=== PATIENT | female | born 1955 | race African-American/Black ===

== ENCOUNTER 2021-06-10 09:13 | Emergency (ER) | payer OTHER, MEDICARE, MEDICAID, SELFPAY ==
--- NOTE | ~2021-06-10 | CT_ITS ---
EXAMINATION: CT BRAIN AND CT CERVICAL SPINE WITHOUT CONTRAST. CLINICAL INFORMATION: Altered mental status. Status post fall. COMPARISON: None. TECHNIQUE: 5 mm thin axial and reformatted 2 mm thin sagittal and coronal images of brain were obtained without contrast. . Axial 3 mm thin and reformatted 2 mm thin sagittal and coronal images of cervical spine were obtained. DLP 952. FINDINGS: Brain: There is no acute intra-axial, extra-axial bleed, masses, collection or midline shift. There is no acute infarction evolution. There is no edema. The lion to white matter difference is maintained normal. The lateral ventricles are symmetrical in size and configuration without enlargement. Bone windows reveal no calvarial abnormality. There is no scalp soft tissue abnormality. Bilateral paranasal sinuses and mastoid air cells are well-aerated. Cervical spine: There is mild straightening of cervical lordosis. Loss of C5-C6 disc height with mild ventral and posterior spondylosis noted. Rest the disc heights are normal. The craniovertebral junction and the C1-C2 alignment is normal. There is small defect along the left posterior C1 lamina with sharp edges suspicious for a acute fracture or congenital defect. It is best visualized on axial image 22/5. Visualized C2-C7 vertebra appear unremarkable. The facet joints are well aligned. There is mild ventral and posterior spondylosis at C5-C6 and C6-C7 disc levels. In addition at C5-C6 disc level there is disc herniation/osteophyte complex without spinal canal stenosis.. Rest of the disc levels are unremarkable. There is no lung apices are clear. Bilateral parotid, submandibular and thyroid lobes are symmetrical and normal. Central tracheal airway is widely patent. No abnormal size neck mass or lymph node seen. No lytic or sclerotic process seen. The prevertebral and paravertebral soft tissues are normal. CT/CT cervical spine wo con IMPRESSION: No acute intracranial process seen. Widening of left C1 lamina. Question fracture versus congenital defect. There is no edema or mass effect in this region. Recommend correlation with old CT cervical spine
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
[2021-06-10 09:38] VITALS: BP 120/82; PULSE 97; O2SAT 98; BMI 18.3
[2021-06-10 09:53] VITALS: BP 118/60; PULSE 87; RESP 16; TEMP 36.8; O2SAT 100
[2021-06-10 11:49] LABS: Appearance Urine CLEAR; Color Urine H; Glucose Urine UA NEG (NEG); Leukocyte Esterase Urine 1+ (NEG); Nitrite Urine NEG (NEG); Specific Gravity - Urine 1.015 (1.005-1.025); UACC Culture Trigger YES; Urine Blood NEG (NEG); Urine Ketones NEG (NEG); Urine Protein NEG (NEG-TRACE)
[2021-06-10 11:55] LABS: Bacteria Urine TRACE /LPF; Mucus Urine 1+ /LPF; Renal Epithelial Cells Urine 1+ /LPF; Squamous Epithelial Cell Urine 1+ /LPF
[2021-06-10 12:00] LABS: Amphetamine Screen Urine Not Detected (Not Detect); Barbiturates, Urine Not Detected (Not Detect); Benzodiazepines Screen Urine Not Detected (Not Detect); Cannabinoid Screen Urine Not Detected (Not Detect); Cocaine Screen Urine Not Detected (Not Detect); Fentanyl, urine Not Detected (Not Detect); Opiate Screen Urine Not Detected (Not Detect); Phencyclidine Screen Urine Not Detected (Not Detect)
--- NOTE | 2021-06-10 12:10 | PC.NURSE ---
The pt has been resting in hallway stretcher. She was able to get OOB into wheelchair and ambulate from wheelchair to toilet and back without incident, per teach at bedside with patient. The pt denies pain. She states she has a bad right leg and that may be why she fell earlier today. She is calm,flat affect, makes no eye contact with RN. Urine obtained and spec sent to lab. Will continue to monitor.
== END 2021-06-10 14:29 ==
PROVIDERS: Physician Assistant; Emergency Provider Emergency Medicine; PCP Nurse Practitioner Adult Health
DX: R40.1 Stupor (principal); F43.10 Post-traumatic stress disorder, unspecified; F41.1 Generalized anxiety disorder; F32.9 Major depressive disorder, single episode, unspecified
CPT/HCPCS: 70450; 72125; 80307; 81001; 87086; 99285

== ENCOUNTER 2021-06-15 16:29 | Emergency (ER) | payer OTHER, MEDICARE, MEDICAID, SELFPAY ==
--- NOTE | ~2021-06-15 | XR_ITS ---
EXAMINATION: BILATERAL HANDS AND WRISTS CLINICAL INFORMATION: Wrist fracture status post reduction COMPARISON: Multiple prior studies from earlier today TECHNIQUE: 2 views right hand and wrist with single lateral view of left wrist. FINDINGS: Right: Again seen is the distal right radial metaphyseal fracture. Alignment is better with only a tiny amount of dorsal angulation, improved when compared to the study earlier today. Left: There still remains dorsal angulation of the distal radial fracture slightly improved when compared to the prior study. XR/XR hand wrist RT IMPRESSION: Improved angulation of the distal left radial fractures as described above
--- NOTE | ~2021-06-15 | XR_ITS ---
EXAMINATION: LEFT HAND CLINICAL INFORMATION: Status post reduction COMPARISON: Left hand and wrist radiographs same day, 5:00 PM TECHNIQUE: 3 views left hand and wrist FINDINGS: Again seen is a impacted distal left radial metaphyseal fracture with marked significant dorsal angulation. Since the prior study, the dorsal angulation is improved only a minimal amount remaining. The impaction is also slightly improved. The minimally displaced ulnar styloid fracture appears without change but is less well visualized because of the overlying cast. XR/XR hand wrist LT IMPRESSION: Improvement in impaction and angulation of distal left radial fracture.
--- NOTE | ~2021-06-15 | XR_ITS ---
EXAMINATION: BILATERAL HANDS AND WRISTS CLINICAL INFORMATION: Wrist fracture status post reduction COMPARISON: Multiple prior studies from earlier today TECHNIQUE: 2 views right hand and wrist with single lateral view of left wrist. FINDINGS: Right: Again seen is the distal right radial metaphyseal fracture. Alignment is better with only a tiny amount of dorsal angulation, improved when compared to the study earlier today. Left: There still remains dorsal angulation of the distal radial fracture slightly improved when compared to the prior study. XR/XR hand wrist LT IMPRESSION: Improved angulation of the distal left radial fractures as described above
--- NOTE | ~2021-06-15 | XR_ITS ---
EXAMINATION: XR hand wrist RT XR hand wrist LT CLINICAL INFORMATION: Reason for Exam s/p fall COMPARISON: None. TECHNIQUE: 4 views of each wrist XR/XR hand wrist LT FINDINGS/IMPRESSION: Right wrist: There is a distal radial metaphyseal fracture with mild dorsal angulation and comminution of the dorsal cortical surface. Minimally displaced ulnar styloid avulsion fracture. Left wrist: There is a distal radial metaphyseal fracture with significant dorsal angulation and dorsal impaction, with one half shaft width dorsal displacement. Minimally displaced ulnar styloid avulsion fracture.
--- NOTE | ~2021-06-15 | XR_ITS ---
EXAMINATION: XR hand wrist RT XR hand wrist LT CLINICAL INFORMATION: Reason for Exam s/p fall COMPARISON: None. TECHNIQUE: 4 views of each wrist XR/XR hand wrist RT FINDINGS/IMPRESSION: Right wrist: There is a distal radial metaphyseal fracture with mild dorsal angulation and comminution of the dorsal cortical surface. Minimally displaced ulnar styloid avulsion fracture. Left wrist: There is a distal radial metaphyseal fracture with significant dorsal angulation and dorsal impaction, with one half shaft width dorsal displacement. Minimally displaced ulnar styloid avulsion fracture.
[2021-06-15 16:41] VITALS: BP 115/70; BP 120/76; PULSE 106; RESP 98; TEMP 36.7; O2SAT 94; O2SAT 98; BMI 21.6
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
[2021-06-15] MEDS: Morphine Sulfate 10 MG/ML CARTRIDGE IM (18:29)
[2021-06-15] MEDS: Lidocaine HCl 2 % MPF 5 ML VIAL 10 ML INFILTRATI (18:29)
--- NOTE | 2021-06-15 18:30 | PC.NURSE ---
patient has had a 1:1 sitter since arrival, provider at bedside to splint patients bilateral arms
[2021-06-15 18:33] VITALS: BP 118/82; PULSE 106; O2SAT 95
--- NOTE | 2021-06-15 18:37 | PC.NURSE ---
patient medicated with IM morphine for 10/10 pain
--- NOTE | 2021-06-15 20:15 | PC.NURSE ---
[facility] was called [phone] to ensure they would be taking the patient back, message was left, awaiting a call back from the facility
[2021-06-15 20:33] VITALS: BP 106/70; PULSE 92; RESP 22; TEMP 36.6; O2SAT 97
[2021-06-15] MEDS: Ondansetron ODT 4 MG TAB.RAPDIS TRANSLINGU (21:01)
--- NOTE | 2021-06-15 21:01 | PC.NURSE ---
pt medicated for nausea with sl zofran, bilateral slings applied by tech, pt states her pain is 5/10 which has decreased from 10/10, vss, will continue to monitor
--- NOTE | 2021-06-15 21:33 | PC.NURSE ---
patient stood/ambulated in room, then ambulated to ems stretcher, pt denied nausea/dizziness while ambulating.
== END 2021-06-15 21:34 ==
PROVIDERS: Emergency Provider Internal Medicine
DX: S62.101A Fracture of unspecified carpal bone, right wrist, initial encounter for closed fracture (principal); S62.102A Fracture of unspecified carpal bone, left wrist, initial encounter for closed fracture; M25.532 Pain in left wrist; M25.531 Pain in right wrist; F33.1 Major depressive disorder, recurrent, moderate; W01.0XXA Fall on same level from slipping, tripping and stumbling without subsequent striking against object, initial encounter; Y93.9 Activity, unspecified; Y92.129 Unspecified place in nursing home as the place of occurrence of the external cause; Y99.9 Unspecified external cause status; Z91.51 Personal history of suicidal behavior; Z79.899 Other long term (current) drug therapy
CPT/HCPCS: 25605; 29105; 73110; 73130; 96372; 99284; 99285; J2270

== ENCOUNTER 2021-06-25 11:54 | Outpatient (REF) | payer OTHER, MEDICARE, MEDICAID, SELFPAY ==
--- NOTE | ~2021-06-25 | XR_ITS ---
EXAMINATION: XR FOOT, LEFT CLINICAL INFORMATION: Pain COMPARISON: None TECHNIQUE: AP, lateral, and oblique views of the left foot. FINDINGS: Bone alignment is normal. No acute fracture or dislocation is seen. There is a well-corticated ossification adjacent to the anterior talus seen on the lateral view, question related to old trauma. Joint spaces are normal. There are small calcaneal spurs. Soft tissues are otherwise normal. XR/XR foot LT min 3V IMPRESSION: Question evidence of old trauma to the anterior talus. Small calcaneal spurs.
== END 2021-06-25 11:55 | disposition home or self-care (01) ==
LOC: HO.HOSX 11:54
PROVIDERS: Visit Provider Orthopaedic Surgery
DX: S52.501A Unspecified fracture of the lower end of right radius, initial encounter for closed fracture (principal); S52.502A Unspecified fracture of the lower end of left radius, initial encounter for closed fracture
CPT/HCPCS: 73630; 99202

== ENCOUNTER 2021-06-26 07:20 | Day surgery (SDC) | payer MEDICARE, MEDICAID, SELFPAY ==
--- NOTE | 2021-06-25 10:17 | P.CONAN_ITS ---
Documented by User: Becca Buchanan NP 06/25/21 10:29 HPI - Anesthesia Eval Consult details Narrative: 65yo F for Bilateral Radius Distal Fracture ORIF h/o seizures - no anti-epileptic drugs d/t noncompliance per ER notes. T/C with social worker delinquency prevention Ana at [facility] (inpatient psych), pt has had long admission with no seizure activity, thought to be an old diagnosis PMFSH Active Problems Active Problems: All Active Problems (Updated 06/16/21 @ 00:01 by Radha Garrett) Seizures (Acute) Depression (Acute) PTSD (post-traumatic stress disorder) (Acute) Catatonia (Acute) Past Medical History Medical History Catatonia Depression PTSD (post-traumatic stress disorder) Seizures Surgical History Surgical History (Updated 06/26/21 @ 06:17 by Radhika Lujan RN) History of breast surgery History of hernia surgery History of knee surgery History of mandibular surgery Hx of hysterectomy Hx of total knee replacement Social History Social History (Updated 06/25/21 @ 12:06 by Adina Mcgee) Alcohol intake: unknown Patient Tobacco Use Status: Never used Tobacco Use of substances other than those prescribed or required for medical reasons: No Are you DNR?: No Advance Directives: No Advance Directives Information Provided: No Current occupational status: disabled 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 Meds Allergies Allergy/AdvReac Type Severity Reaction Status Date / Time aspirin [ASA] Allergy Mild VOMITTING Verified 06/25/21 12:05 diphenhydramine Allergy Mild DROPS BP Verified 06/25/21 12:05 [From BENADRYL] Penicillins [PCN] Allergy Mild VOMITTING Verified 06/25/21 12:05 prochlorperazine Allergy Mild MUSCLE Verified 06/25/21 12:05 [From COMPAZINE] STIFFNESS haloperidol [From Haldol] Allergy Anaphylaxis Verified 06/26/21 06:19 ibuprofen AdvReac Nausea Verified 06/26/21 06:19 oxycodone AdvReac Stomach Verified 06/26/21 06:19 Upset Home Medications Medication Instructions Recorded Confirmed Last Taken Type acetaminophen 500 mg tablet 1,000 mg PO TID 06/26/21 06/26/21 Unknown History aripiprazole 5 mg tablet (Abilify) 5 mg PO BEDTIME 06/26/21 06/26/21 Unknown His tory duloxetine 60 mg capsule,delayed 60 mg PO DAILY 06/26/21 06/26/21 Unknown History release (Cymbalta) gabapentin 100 mg tablet 200 mg PO TID 06/26/21 06/26/21 Unknown History quetiapine 100 mg tablet (Seroquel) 100 mg PO BEDTIME 06/26/21 06/26/21 Unknown History Exam Exam Date and Time: June 25, 2021 1017 Assessment and Plan Assessment Anesthesia Assessment: Chart Reviewed Documented by User: Ranjit Herron MD 06/26/21 10:11 PMFSH Past Medical History Medical History Catatonia Depression PTSD (post-traumatic stress disorder) Seizures Family History Family history of problems with anesthesia: No Surgical History Surgical History (Updated 06/26/21 @ 06:17 by Radhika Lujan RN) History of breast surgery History of hernia surgery History of knee surgery History of mandibular surgery Hx of hysterectomy Hx of total knee replacement History of Problems with Anesthesia: Yes (PONV) Social History Social History (Updated 06/25/21 @ 12:06 by Adina Mcgee) Alcohol intake: unknown Patient Tobacco Use Status: Never used Tobacco Use of substances other than those prescribed or required for medical reasons: No Are you DNR?: No Advance Directives: No Advance Directives Information Provided: No Current occupational status: disabled 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 Meds Allergies Allergy/AdvReac Type Severity Reaction Status Date / Time aspirin [ASA] Allergy Mild VOMITTING Verified 06/25/21 12:05 diphenhydramine Allergy Mild DROPS BP Verified 06/25/21 12:05 [From BENADRYL] Penicillins [PCN] Allergy Mild VOMITTING Verified 06/25/21 12:05 prochlorperazine Allergy Mild MUSCLE Verified 06/25/21 12:05 [From COMPAZINE] STIFFNESS haloperidol [From Haldol] Allergy Anaphylaxis Verified 06/26/21 06:19 ibuprofen AdvReac Nausea Verified 06/26/21 06:19 oxycodone AdvReac Stomach Verified 06/26/21 06:19 Upset Home Medications Medication Instructions Recorded Confirmed Last Taken Type acetaminophen 500 mg tablet 1,000 mg PO TID 06/26/21 06/26/21 Unknown History aripiprazole 5 mg tablet (Abilify) 5 mg PO BEDTIME 06/26/21 06/26/21 Unknown History duloxetine 60 mg capsule,delayed 60 mg PO DAILY 06/26/21 06/26/21 Unknown History release (Cymbalta) gabapentin 100 mg tablet 200 mg PO TID 06/26/21 06/26/21 Unknown History quetiapine 100 mg tablet (Seroquel) 100 mg PO BEDTIME 06/26/21 06/26/21 Unknown History Exam Airway Mallampati Class: II TM Dist: >3cm Neck ROM: Full Loose/Missing/Broken Teeth: No Assessment and Plan Assessment Anesthesia Assessment: Anesthesia Plan Discussed Final Anesthetic Review Family History of Problems with Anesthesia: No History of Problems with Anesthesia: Yes (PONV) NPO: Yes ASA Class: II Final Preanesthetic Review: No Changes in Pt Med Stat, Meds/Allgs Chart Reviewed, Consent Obtained/Reviewed and Anes Risks/Benef Reviewed Patient Risk: Intermediate Procedure Risk: Low Anesthetic Plan Anesthetic Plan: GA and Regional Block Disposition: Standard PACU
[2021-06-26] VITALS (19 sets, daily range): BP systolic 122–155; BP diastolic 60–81; PULSE 87–112; RESP 14–18; TEMP 36.1–37.1; O2SAT 93–100; BMI 21.2
--- NOTE | ~2021-06-26 | FL_ITS ---
EXAMINATION: XR FLUOROSCOPY WITH IMAGES CLINICAL INFORMATION: Distal radius fracture with ORIF, left COMPARISON: None. TECHNIQUE: Fluoroscopy performed by Dr. Hunter. Fluoroscopy time: 50.2 seconds DAP: 56762.1 Gycm2 Images: 3 FINDINGS: Distal radial fracture noted. There is plate and screw fixation hardware of the distal radius chest fixing the fracture with near-anatomic alignment. FL/FL guidance in OR IMPRESSION: Internal fixation of the distal radial fracture. Please refer to procedural report for further information.
--- NOTE | ~2021-06-26 | FL_ITS ---
EXAMINATION: XR FLUOROSCOPY WITH IMAGES CLINICAL INFORMATION: Distal radius fracture ORIF, right COMPARISON: None. TECHNIQUE: Fluoroscopy performed by Dr. Hunter. Fluoroscopy time: 31.3 seconds DAP: 63303.3 Gycm2 Images: 2 FINDINGS: There is plate and screw fixation hardware transfixing the distal radius with near-anatomic alignment. FL/FL guidance in OR IMPRESSION: Fluoroscopic guidance for internal fixation of the distal radius. Please refer to operative report for further information.
[2021-06-26 06:46] LABS: IDNOW Serial# 9DD0AD1C
[2021-06-26 06:47] LABS: COVID-19 Test Negative (Negative)
--- NOTE | 2021-06-26 07:46 | MHC.SHP ---
Pre-Procedural Eval Section A Date of Service: 06/26/21 The patient is an INPATIENT: No Changes since office visit: No Cold of Flu in the past 2 weeks, No New Medical Problems, No Changes in Medication and No Patient answered all questions The History & Physical has been completed within 30 days and I have reviewed it.: Yes Section B Chief Complaint: right and left wrist fx Allergies: Allergies Allergy/AdvReac Type Severity Reaction Status Date / Time aspirin [ASA] Allergy Mild VOMITTING Verified 06/25/21 12:05 diphenhydramine Allergy Mild DROPS BP Verified 06/25/21 12:05 [From BENADRYL] Penicillins [PCN] Allergy Mild VOMITTING Verified 06/25/21 12:05 prochlorperazine Allergy Mild MUSCLE Verified 06/25/21 12:05 [From COMPAZINE] STIFFNESS haloperidol [From Haldol] Allergy Anaphylaxis Verified 06/26/21 06:19 ibuprofen AdvReac Nausea Verified 06/26/21 06:19 oxycodone AdvReac Stomach Verified 06/26/21 06:19 Upset Plan I have reviewed the history and physical and performed a pertinent physical examination on my patient. No changes have occurred unless specified.
--- NOTE | 2021-06-26 07:47 | P.OP_ITS ---
Operative Note Operative Note Date of Service: 06/26/21 Narrative: Operative Note Narrative: Preop diagnosis: 1. Left Distal radius fracture 2. Right distal radius fracture Postop diagnosis: Same Procedure: 1. Left Distal radius fracture open reduction internal fixation, 2 part intra- articular 2. Right distal radius fracture open reduction internal fixation, extra- articular Surgeon: Mitra Hunter MD Anesthesia: General plus regional block x2 Findings: Distal radius fractures x2 Implants: Left side: A 3 hole standard Accu Med volar locking plate, with 4x 2.3 mm locking pegs/screws, and 3 3.5 mm cortical screws Right side: A 3 hole standard Accu Med volar locking plate, with 4x 2.3 mm locking pegs/screws, and 3? 3.5 mm cortical screws Tourniquet time: Left side: 44 minutes Right side: 35 Minutes EBL: 10.0 ml Specimen: None Drains: None Complications: None Disposition: Brought to the recovery room in stable condition Plan: The patient will be admitted to the hospital today. Anticipate discharge to family/friend tomorrow with home health care as arranged by social work and nursing Follow-up in 10-14 days for wound check, suture removal and postop radiographs The patient will likely be placed in bilateral Velcro wrist splints. Encouraged no lifting of anything heavier than a cell phone. Please encourage active and passive range of motion of the digits. Follow-up at 4-5 weeks postop for repeat radiographs. Indications: The patient is a 65 year old woman with displaced bilateral distal radius fractures . The risks and benefits of operative treatment, including but not limited to risk of damage to blood vessels, nerves, tendons, infection, recurrence, persistent pain or numbness, incomplete resolution of preoperative symptoms, or need for further surgery were discussed with the patient and they wished to proceed with surgery. Procedure left upper extremity: Once consent was obtained patient was brought back to the operating suite and placed in the operating table in a supine posi tion. A regional block was performed by the anesthesia team. Perioperative antibiotics and anesthesia was administered by the anesthesia team. A tourniquet was applied to the proximal aspect of the left upper extremity and the limb was prepped and draped in a standard surgical fashion. The limb was elevated exsanguinated with Esmarch bandage and the tourniquet inflated to 250 mm of mercury for a total tourniquet time of 44 minutes. The FluoroScan was used throughout the case to assess our reduction, and facilitate implant placement. A gentle closed reduction was 1st performed on the patient's left distal radius fracture. Was assessed radiographically before proceeding with the reduction internal fixation. I then made an 8 cm longitudinal incision over the distal aspect of the flexor carpi radialis tendon. The incision was made through the skin to the subcutaneous tissue using a 15. Blade. Then carefully dissected down to flexor carpi radialis tendon she tenotomy scissors. The FCR tendon sheath was then incised longitudinally using tenotomy scissors under direct visualization. The FCR tendon was then retracted ulnarly. I then made a longitudinal incision in the volar forearm fascia through the floor of FCR tendon sheath using tenotomy scissors under direct visualization. I identified the interval between the radial artery and the flexor tendons. This interval was developed further with my index finger, releasing some of the muscular fibers of the flexor pollicis longus. A dull weatlander retractor was then placed. I then created an ulnarly based flap of the pronator quadratus by releasing the radial and distal edges using a 15. Blade. A Gloria elevator was used to elevate the pronator quadratus from the volar surface of the distal radius. This then revealed to us our distal radius fracture. An open reduction was then performed on our distal radius fracture. Some of the pronator quadratus musculature was caught in the fracture site and this was rem chai with a small rongeur and a [place] elevator. I also performed a tenotomy of the brachioradialis tendon at its insertion in the radial styloid to facilitate our reduction. Once satisfied with our open reduction I then placed a short standard 3 hole Accu Med volar locking plate on the volar surface of the distal radius. I placed a single K-wire through the distal aspect of the plate and into the distal radius. This was assessed using fluoroscopic images. I was satisfied with the placement of our plate. I then placed 4x 2.3 mm locking screws/pegs in the distal aspect of the plate and distal radius by 1st drilling bicortically with a 1.8 mm drill bit, measuring with a depth gauge, and placing the appropriate length locking screws/pegs. The placement of our plate and screws was then assessed again using fluoroscopic images. The once satisfied with the placement of the volar locking plate and screws on the distal aspect of the distal radius, the plate was then reduced to the shaft of the radius. I then placed 3 3.5 mm cortical screws to the proximal aspect of the plate and into the shaft of the radius. This was done by 1st drilling bicortically with a 2.8 mm drill bit, measuring with a depth gauge, and placing the appropriate length screw. Final radiographs were then obtained. The DRUJ was assessed and found to be stable on exam. I was satisfied with our reduction and placement of all implants. At this point the wound was irrigated with normal saline. The pronator quadratus was reduced back over the volar locking plate using some 3-0 Vicryl suture material. The tourniquet was then deflated and hemostasis was obtained with a brief period of local pressure and bipolar monopolar electrocautery. The subcutaneous layer was then reapproximated using some 4-0 Vicryl suture, and the skin edges were reapproximated using some 5 0 Prolene suture. The wound was then infiltrated with some 0.25% plain Marcaine for postop pain control. A sterile dressing and a short dorsal splint allowing for active flexion and extension of the digits was applied. The patient appears to have tolerated the procedure well and with no complications. All digits were well vascularized conclusion of the case. Procedure right upper extremity: Once consent was obtained patient was brought back to the operating suite and placed in the operating table in a supine position.? A regional block was performed by the anesthesia team.? Perioperative antibiotics and anesthesia was administered by the anesthesia team.? A tourniquet was applied to the proximal aspect of the right upper extremity and the limb was prepped and draped in a standard surgical fashion.? The limb was elevated exsanguinated with Esmarch bandage and the tourniquet inflated to 250 mm of mercury for a total tourniquet time of 35 minutes.?? The FluoroScan was used throughout the case to assess our reduction, and facilitate implant placement.? A gentle closed reduction was 1st performed on the patient's right distal radius fracture.? Was assessed radiographically before proceeding with the reduction internal fixation.? I then made an 8 cm longitudinal incision over the distal aspect of the flexor carpi radialis tendon.? The incision was made through the skin to the subcutaneous tissue using a 15. Blade.? Then carefully dissected down to flexor carpi radialis tendon she tenotomy scissors.? The FCR tendon sheath was then incised longitudinally using tenotomy scissors under direct visualization.? The FCR tendon was then retracted ulnarly.? I then made a longitudinal incision in the volar forearm fascia through the floor of FCR tendon sheath using tenotomy scissors under direct visualization.? I identified the interval between the radial artery and the flexor tendons.? This interval was developed further with my index finger, releasing some of the muscular fibers of the flexor pollicis longus.? A dull weatlander retractor was then placed.? I then created an ulnarly based flap of the pronator quadratus by releasing the radial and distal edges using a 15. Blade.? A Gloria elevator was used to elevate the pronator quadratus from the volar surface of the distal radius.? This then revealed to us our distal radius fracture. An open reduction was then performed on our distal radius fracture.? I then placed a? short standard 3 hole Accu Med volar locking plate on the volar surface of the distal radius.? I placed a single K-wire through the distal aspect of the plate and into the distal radius.? This was assessed using fluoroscopic images.? I was satisfied with the placement of our plate.? I then placed 4x? ?2.3 mm locking screws/pegs in the distal aspect of the plate and distal radius by 1st drilling bicortically with a 1.8 mm drill bit, measuring with a depth gauge, and placing the appropriate length locking screws/pegs.? The placement of our plate and screws was then assessed again using fluoroscopic images.? The once satisfied with the placement of the volar locking plate and screws on the distal aspect of the distal radius, the plate was then reduced to the shaft of the radius.? I then placed 3? ?3.5 mm cortical screws to the proximal aspect of the plate and into the shaft of the radius.? This was done by 1st drilling bicortically with a 2.8 mm drill bit, measuring with a depth gauge, and placing the appropriate length screw.? Final radiographs were then obtained.? The DRUJ was assessed and found to be stable on exam.? I was satisfied with our reduction and placement of all implants. At this point the wound was irrigated with normal saline.? The pronator quadratus was reduced back over the volar locking plate using some 3-0 Vicryl suture material.? The tourniquet was then deflated and hemostasis was obtained with a brief period of local pressure and bipolar monopolar electrocautery.? The subcutaneous layer was then reapproximated using some 4-0 Vicryl suture, and the skin edges were reapproximated using some 5 0 Prolene suture.? The wound was then infiltrated with some 0.25% plain Marcaine for postop pain control. A sterile dressing and a short dorsal splint allowing for active flexion and extension of the digits was applied.? The patient appears to have tolerated the procedure well and with no complications.? All digits were well vascularized conclusion of the case.
[2021-06-26] MEDS: ondansetron HCL 4 MG/2 ML VIAL IVPUSH ×2 (14:44→23:46)
[2021-06-26] MEDS: Acetaminophen 325 MG TABLET 650 MG PO (15:42)
[2021-06-26] MEDS: Ketorolac Tromethamine 15 MG/ML VIAL IVPUSH (16:03)
--- NOTE | 2021-06-26 16:19 | MHC.CARE ---
Pt was recently d/c from inpatient psych ([facility]) due to surgery being conducted today. Plan is when pt is medically cleared consult CARE team at 56 to assess pt's current mental status and determine if pt still requires inpatient psych.
[2021-06-26] MEDS: Lactated Ringers 1,000 ML 100 ML IVCONT (17:39)
[2021-06-26] MEDS: oxyCODONE HCl Immed Release 5 MG TABLET PO (23:46)
[2021-06-27 03:19] VITALS: BP 132/63; PULSE 80; RESP 16; TEMP 36.8; O2SAT 97
[2021-06-27] MEDS: Lactated Ringers 1,000 ML 100 ML IVCONT (05:15)
[2021-06-27] MEDS: HYDROmorphone HCl 0.5 MG/0.5 ML SYRINGE 0.25 MG IVPUSH ×2 (05:54→19:45)
[2021-06-27 07:24] VITALS: BP 138/68; PULSE 82; RESP 18; TEMP 36.8; O2SAT 96
[2021-06-27] MEDS: oxyCODONE HCl Immed Release 5 MG TABLET PO ×3 (07:33→19:40)
[2021-06-27] MEDS: Acetaminophen 325 MG TABLET 650 MG PO ×2 (07:33→13:08)
--- NOTE | 2021-06-27 08:06 | PM.PNORT ---
Subjective Subjective Date of Service: 06/27/21 Interval history: POD1 s/p bilat distal radius ORIF with Dr. Hunter. Pain is well managed. No overnight events. Physical Exam Vital Signs: Vital Signs: Last Vital Signs Temp 98.3 F 06/27/21 07:24 Pulse 82 06/27/21 07:24 Resp 18 06/27/21 07:24 BP 138/68 06/27/21 07:24 Pulse Ox 96 06/27/21 07:24 Body Mass Index 21.2 Const: General: cooperative, healthy appearing and no acute distress Resp: Effort & Inspection: normal respiratory effort and able to speak in complete sentences Cardio: Rate: regular rate Peripheral pulses: Peripheral pulses 2+ throughout GI: Palpation (GI): Soft to palpation Skin: Lesions: no lesions Rashes: no rashes Extrem: Other: Bilateral wrist splints are clean, dry, and intact. Patient is able to move all digits. Procedures Date of Service Date of Service: 06/27/21 Progress Note: A&P Assessment and plan (1) Distal radius fracture, right: Status: Acute Assessment and Plan: Continue pain mgmnt Keep splints clean, dry, and intact Gentle finger ROM to make a closed fist No lifting greater than a cell phone Dispo planning-Pending case management placement at rehab (2) Distal radius fracture, left: Status: Acute Fall Risk Details Current Medications: Current Medications Acetaminophen (Acetaminophen 325 Mg Tablet) 650 mg PO Q6H PRN PRN Reason: Pain, Mild (Pain Scale 1-3) Last Admin: 06/27/21 07:33 Dose: 650 mg Documented by: Al Hydroxide/Mg Hydroxide (Magnesium Hydrox/Alum Hydrox 30 Ml Oral.Susp) 30 ml PO Q4H PRN PRN Reason: Heartburn/Nausea Hydromorphone HCl (Hydromorphone Hcl 0.5 Mg/0.5 Ml Syringe) 0.25 mg IVPUSH Q5M PRN; Protocol PRN Reason: Pain, Severe (Pain Scale 7-10) Last Admin: 06/27/21 05:54 Dose: 0.25 mg Documented by: Lactated Ringer's (Lr) 1,000 mls @ 100 mls/hr IVCONT .Q10H UMANG Last Admin: 06/27/21 05:15 Dose: 100 mls/hr Documented by: Lorazepam (Lorazepam 2 Mg/Ml Vial) 0.5 mg IVPUSH Q2H PRN PRN Reason: Nausea Melatonin (Melatonin 3 Mg Tablet) 3 mg PO BEDTIME PRN PRN Reason: Insomnia Ondansetron HCl (Ondansetron Hcl 4 Mg/2 Ml Vial) 4 mg IVPUSH ONCE PRN PRN Reason: Nausea and Vomiting Last Admin: 06/26/21 14:44 Dose: 4 mg Documented by: Ondansetron HCl (Ondansetron Hcl 4 Mg/2 Ml Vial) 4 mg IVPUSH Q8H PRN PRN Reason: Nausea and Vomiting Last Admin: 06/26/21 23:46 Dose: 4 mg Documented by: Oxycodone HCl (Oxycodone Hcl Immed Release 5 Mg Tablet) 5 mg PO Q4H PRN PRN Reason: Pain, Moderate (Pain Scale 4-6 Last Admin: 06/27/21 07:33 Dose: 5 mg Documented by: Sodium Chloride (0.9 % Sodium Chloride Flush 3 Ml Syringe) 3 ml [facility] Last Admin: 06/27/21 07:28 Dose: Not Given Documented by: Time Spent With Patient Time: Total time spent is greater than 50% in coordination of care (as documented) at patient's floor/unit and/or counseling patient: Time with patient: less than 15 minutes Quality Stroke Does the patient have a stroke diagnosis?: No VTE Prior VTE?: No VTE Risk Level:: Surgical - very high VTE Device Contraindication: N/A - Device Ordered VTE Drug Contraindication: N/A - Med Ordered
--- NOTE | 2021-06-27 08:26 | HO.POSTANES ---
Post Anesthesia Evaluation Post Anesthesia Evaluation Vital Signs: Vital Signs Temp Pulse Resp BP Pulse Ox 06/27/21 07:24 98.3 F 82 18 138/68 96 06/27/21 03:19 98.2 F 80 16 132/63 97 06/26/21 23:49 98.5 F 93 16 127/68 98 Anesthesia: General Mental Status: Awake Pain Control: Satisfactory Nausea/Vomiting: None Hydration: Adequate Anesthesia-Related Issues: No Anes. Related Issues
--- NOTE | 2021-06-27 08:54 | MHC.CM.PN ---
LATE ENTRY FROM 06/26 PHONE CALL Received call from child care director re: pt: Pt admitted E[facility] for bilateral wrist fx repair: original d/c plan was for pt stay with a family in [place] and receive VNA from [facility], however, per orthodontic assistant, pt 'cancelled' this arrangement. Pt had been at [facility] in [place] when she sustained the self inflicted wrist fx by intentionally falling forward onto the floor. Per fax correpsondance from [facility] (see scanned letter), they are unable to take pt back d/t her new medical complexity. child care director would like pt seen by PT and placed for STR. Upon review, it is noted that pt has Medicare without a secondary. Also, there is no HCP per [facility]. Pt will need to be cleared by N d/t the nature of her injuries: child care director states pt is alert and oriented and should be able to complete a HCP. Pt's living situation prior to psych admission is unknown. CM will follow for ? placement.
--- NOTE | 2021-06-27 10:07 | MHC.CARE ---
CARE Team spoke with Enmanuel Perez [phone] who reported Pt has been fully discharged from [facility] and completed her plan of care. Ana emailed Pt discharged summary to t/w which was placed in Pts chart and emailed to CM. CARE Team communicated with CM that Pt does not need further intervention from the CARE Team at this time.
--- NOTE | 2021-06-27 10:09 | MHC.CARE ---
CARE Team met with Pt who denies current SI/HI/VH/AH. Pt is advocating for discharged with support from CM services and to follow up with Pts therapist. Pt does not require further intervention from CARE Team. CARE Team notified CM and attending provider Mitra.
[2021-06-27 11:22] VITALS: BP 138/68; PULSE 82; O2SAT 96
[2021-06-27 12:00] VITALS: BP 153/70; PULSE 93; RESP 18; TEMP 36; O2SAT 97
--- NOTE | 2021-06-27 12:13 | MHC.CM.PN ---
talksed with pt who will be stqaying at the [facility] last name alessandra whelan notified of dc destination and that ot will be needed spoke with alice pt says she has own transport home
[2021-06-27] MEDS: ondansetron HCL 4 MG/2 ML VIAL IVPUSH (13:12)
[2021-06-27 15:49] VITALS: BP 138/85; PULSE 94; RESP 18; TEMP 37.4; O2SAT 97
[2021-06-27] MEDS: 0.9 % Sodium Chloride Flush 3 ML SYRINGE IVFLUSH ×2 (16:03→19:46)
[2021-06-27 19:49] VITALS: BP 167/89; PULSE 92; RESP 20; TEMP 36.9; O2SAT 97
[2021-06-28] VITALS (7 sets, daily range): BP systolic 125–159; BP diastolic 67–85; PULSE 75–108; RESP 14–18; TEMP 36.2–36.8; O2SAT 94–96
[2021-06-28] MEDS: oxyCODONE HCl Immed Release 5 MG TABLET PO ×3 (05:20→21:46)
[2021-06-28] MEDS: 0.9 % Sodium Chloride Flush 3 ML SYRINGE IVFLUSH ×3 (08:01→21:46)
--- NOTE | 2021-06-28 10:00 | PM.PNORT ---
Subjective Subjective Date of Service: 06/28/21 Interval history: POD2 s/p bilat distal radius ORIF with Dr. Hunter. Patient is sitting comfortably in the chair. Pain is well managed. No overnight events. No complaints. Physical Exam Vital Signs: Vital Signs: Last Vital Signs Temp 97.7 F 06/28/21 07:57 Pulse 85 06/28/21 07:57 Resp 18 06/28/21 07:57 BP 146/67 H 06/28/21 07:57 Pulse Ox 95 06/28/21 07:57 Body Mass Index 21.2 Const: General: cooperative, healthy appearing and no acute distress Resp: Effort & Inspection: normal respiratory effort and able to speak in complete sentences Cardio: Rate: regular rate Peripheral pulses: Peripheral pulses 2+ throughout GI: Palpation (GI): Soft to palpation Skin: Lesions: no lesions Rashes: no rashes Extrem: Other: Bilateral wrist splints are clean, dry, and intact. Patient is able to move all digits. Sensation intact. Procedures Date of Service Date of Service: 06/28/21 Progress Note: A&P Assessment and plan (1) Distal radius fracture, right: Status: Acute Assessment and Plan: Continue pain mgmnt Keep splints clean, dry, and intact. Continue working on finger ROM to closed fist Dispo planning-Case management working on d/c planning and services (2) Distal radius fracture, left: Status: Acute Fall Risk Details Current Medications: Current Medications Acetaminophen (Acetaminophen 325 Mg Tablet) 650 mg PO Q6H PRN PRN Reason: Pain, Mild (Pain Scale 1-3) Last Admin: 06/27/21 13:08 Dose: 650 mg Documented by: Al Hydroxide/Mg Hydroxide (Magnesium Hydrox/Alum Hydrox 30 Ml Oral.Susp) 30 ml PO Q4H PRN PRN Reason: Heartburn/Nausea Hydromorphone HCl (Hydromorphone Hcl 0.5 Mg/0.5 Ml Syringe) 0.25 mg IVPUSH Q5M PRN; Protocol PRN Reason: Pain, Severe (Pain Scale 7-10) Last Admin: 06/27/21 19:45 Dose: 0.25 mg Documented by: Lorazepam (Lorazepam 2 Mg/Ml Vial) 0.5 mg IVPUSH Q2H PRN PRN Reason: Nausea Magnesium Hydroxide (Milk Of Magnesia 30 Ml Oral.Susp) 30 ml PO DAILY PRN PRN Reason: Constipation Melatonin (Melatonin 3 Mg Tablet) 3 mg PO BEDTIME PRN PRN Reason: Insomnia Ondansetron HCl (Ondansetron Hcl 4 Mg/2 Ml Vial) 4 mg IVPUSH ONCE PRN PRN Reason: Nausea and Vomiting Last Admin: 06/26/21 14:44 Dose: 4 mg Documented by: Ondansetron HCl (Ondansetron Hcl 4 Mg/2 Ml Vial) 4 mg IVPUSH Q8H PRN PRN Reason: Nausea and Vomiting Last Admin: 06/27/21 13:12 Dose: 4 mg Documented by: Oxycodone HCl (Oxycodone Hcl Immed Release 5 Mg Tablet) 5 mg PO Q4H PRN PRN Reason: Pain, Moderate (Pain Scale 4-6 Last Admin: 06/28/21 05:20 Dose: 5 mg Documented by: Sodium Chloride (0.9 % Sodium Chloride Flush 3 Ml Syringe) 3 ml [facility] Last Admin: 06/28/21 08:01 Dose: 3 ml Documented by: Time Spent With Patient Time: Total time spent is greater than 50% in coordination of care (as documented) at patient's floor/unit and/or counseling patient: Time with patient: less than 15 minutes Quality Stroke Does the patient have a stroke diagnosis?: No VTE Prior VTE?: No VTE Risk Level:: Surgical - very high VTE Device Contraindication: N/A - Device Ordered VTE Drug Contraindication: N/A - Med Ordered
[2021-06-28] MEDS: Milk of Magnesia 30 ML ORAL.SUSP PO (10:24)
[2021-06-29] VITALS: BP 121/73; PULSE 86; RESP 17; TEMP 36.5; O2SAT 95
[2021-06-29 04:00] VITALS: BP 140/84; PULSE 85; RESP 17; TEMP 36.9; O2SAT 95
[2021-06-29] MEDS: Acetaminophen 325 MG TABLET 650 MG PO (06:34)
[2021-06-29] MEDS: ondansetron HCL 4 MG/2 ML VIAL IVPUSH (06:35)
[2021-06-29 06:52] VITALS: BP 110/71; PULSE 93; RESP 18; TEMP 36.7; O2SAT 95
[2021-06-29] MEDS: 0.9 % Sodium Chloride Flush 3 ML SYRINGE IVFLUSH (07:30)
[2021-06-29 11:24] VITALS: BP 120/58; PULSE 98; RESP 18; TEMP 36.1; O2SAT 96
--- NOTE | 2021-06-29 12:57 | P.DS_ITS ---
DS: Providers Provider Date of Service: 06/29/21 Primary care physician: Unknown Physician Consults: 06/26/21 15:10 Consult to Psychiatry Routine Consulting Provider: Psych Covering Reason for consultation: pt [facility] from [facility] for [facility] fxs. please eval, Has provider been notified: No DS: Diagnosis Discharge Diagnosis (1) Distal radius fracture, right: Status: Acute (2) Distal radius fracture, left: Status: Acute DS: Summary Hospital Course Hospital Course: Ms. Gorge Harris is a 65 yo female who sustained a bilateral distal radius fracture after a mechanical fall on 06/15/21. The patient was seen in the orthopedic office where surgery was reccomended. She underwent bilateral distal radius ORIF on 06/26/[address] Hunter. She was transferred to PACU and then to the floor to recover. During her stay she was afebrile at 97 degrees. The plan was to be discharged home with services. Time Spent with Patient Time attestation: Total time spent providing and/or coordinating discharge services: Discharge coordination time: Less than 30 minutes Quality: Stroke Does the patient have a stroke diagnosis?: No Physical Exam Vital Signs: Vital Signs: Last Vital Signs Temp 97 F 06/29/21 11:24 Pulse 98 06/29/21 11:24 Resp 18 06/29/21 11:24 BP 120/58 L 06/29/21 11:24 Pulse Ox 96 06/29/21 11:24 Body Mass Index 21.2 Const: General: cooperative, healthy appearing and no acute distress Resp: Effort & Inspection: normal respiratory effort and able to speak in complete sentences Cardio: Rate: regular rate Peripheral pulses: Peripheral pulses 2+ throughout GI: Palpation (GI): Soft to palpation Skin: Lesions: no lesions Rashes: no rashes Extrem: Other: Bilateral wrist splints are clean, dry, and intact. Patient is able to move all digits. Sensation intact. Discharge Plan Discharge Patient Disposition: Home, Self-Care Referrals: Mitra Hunter MD [Physician] - 2 Weeks (07/08/21 at 1:30pm) Discharge Medications: New oxycodone 5 mg Tablet 5 mg PO Q6-8H PRN (Reason: Pain, Moderate (Pain Scale 4-6) 7 Days Qty: 28 RF: 0 Continued (DME) miscellaneous medical supply Misc See Rx Instructions miscellaneous .MEDSUPPLY Qty: 1 RF: 0 cefuroxime axetil 250 mg tablet 250 mg PO BID 3 Days Qty: 6 RF: 0 quetiapine [Seroquel] 100 mg Tablet 100 mg PO BEDTIME RF: 0 acetaminophen 500 mg Tablet 1,000 mg PO TID RF: 0 aripiprazole [Abilify] 5 mg Tablet 5 mg PO BEDTIME RF: 0 duloxetine [Cymbalta] 60 mg Capsule,Delayed Release(Dr/Ec) 60 mg PO DAILY RF: 0 gabapentin 100 mg Tablet 200 mg PO TID RF: 0 Discharge Orders: Discharge Order (Routine); Ordered 06/29/21 Ordered By: Nora Duncan Activity Restrictions/Additional Instructions: Keep splint clean, dry, and intact Elevate throughout the day No lifting greater than a cell phone Perform fist/finger exercises throughout the day Do not bathe or shower--keep splint dry Call [facility] orthopedics with any questions or concerns. Follow up with orthopedics in 14 days post op
--- NOTE | 2021-06-29 13:16 | P.F2F_ITS ---
Service Date Service Date: 06/29/21 Reasons for Services Reason for occupational therapy: home safety and mobility, therapeutic exercises, restore joint function, gait/transfer training, assess need for DME and ADL training Homebound: Leaving the home is medically contraindicated at this time without the asist of a device and/or another person due th the listed conditions above and below. Reason homebound: unable to drive Homebound supporting statement: Pt. is considered homebound due to recent surgery. Unable to drive, poor balance, poor gait mechanics. Certification: Based on the above findings, I certify that this patient is confined to the home and needs intermittent care home care, physical therapy and/or speech therapy, or continues to need occupational therapy. The patient is under my care, and I have initiated the establishment of the plan of care. The patient will be followed by a physician who will periodically review the plan of care.
--- NOTE | 2021-06-29 13:23 | MHC.CM.PN ---
PT WILL DC TO HER FRIENDS HOME TODAY WITH [facility] UPDATED VIA [employer] Me Certified AND PTS DC AND F2F WERE SENT PT ARRANGED HER OWN TRANSPORT
== END 2021-06-29 16:16 | disposition home or self-care (01) ==
LOC: HO.SSS 07:21 → HO.S3 15:27
PROVIDERS: PCP Nurse Practitioner Adult Health; Visit Provider Orthopaedic Surgery
PROC: (CPT 25608; principal; 2021-06-26 07:30)
DX: S52.572A Other intraarticular fracture of lower end of left radius, initial encounter for closed fracture (principal); S52.551A Other extraarticular fracture of lower end of right radius, initial encounter for closed fracture; M79.672 Pain in left foot; W18.39XA Other fall on same level, initial encounter; Y93.89 Activity, other specified; Y92.238 Other place in hospital as the place of occurrence of the external cause; Y99.8 Other external cause status; F20.2 Catatonic schizophrenia; F32.9 Major depressive disorder, single episode, unspecified; F43.10 Post-traumatic stress disorder, unspecified; R56.9 Unspecified convulsions; Z20.822 Contact with and (suspected) exposure to COVID-19; Z88.0 Allergy status to penicillin; Z88.8 Allergy status to other drugs, medicaments and biological substances
CPT/HCPCS: 25608; 25607; 36415; 87635; 97161; 97165; C1713; C1769; J0690; J1100; J1170; J1885; J2250; J2405; J3010

== ENCOUNTER 2021-06-30 16:57 | Emergency (ER) | payer MEDICARE, MEDICAID, SELFPAY ==
[2021-06-30 18:09] VITALS: BP 102/73; PULSE 114; RESP 19; TEMP 36.2; O2SAT 98; BMI 21.5
--- NOTE | 2021-06-30 20:28 | ECG_ITS ---
Test Reason : weakness Blood Pressure : / mmHG Vent. Rate : 093 BPM Atrial Rate : 093 BPM P-R Int : 120 ms QRS Dur : 076 ms QT Int : 350 ms P-R-T Axes : 059 014 027 degrees QTc Int : 435 ms Normal sinus rhythm Nonspecific ST abnormality Septal leads Nonspecific T wave abnormality Inferior leads Abnormal ECG When compared with ECG of 16-MAR-2017 14:08, Nonspecific T wave abnormality now evident in Inferior leads Referred By: Vicky Hidalgo Electronically Signed By:WILFRID GRANT MD
--- NOTE | 2021-06-30 20:50 | ED_ITS ---
HPI - General Adult General Chief complaint: General Medical Stated complaint: unknow Time Seen by Provider: 06/30/21 18:57 Source: patient Mode of arrival: ambulatory Limitations: no limitations History of Present Illness HPI narrative: 65-year-old female with a past medical history of depression, PTSD, catatonia, generalized anxiety disorder, seizures and bilateral wrist fractures presenting to the ED with request for physical therapy and case management consult for senior care facility placement. She reports that she was seen here on 06/15/2021 and diagnosed with bilateral wrist fractures and she has surgery on 06/26/2021 and she was discharged home after she was told that she would have outpatient physical therapy/services at her friend's house although she has not received any services and she believes that she may need to go to a senior care facility. She denies any new injuries complaints or concerns at this time. MD complaint: Requesting physical therapy and case management for senior care facilit Onset (ago): day(s) (Today) Related Data Home Medications Medication Instructions Recorded Confirmed acetaminophen 500 mg tablet 1,000 mg PO TID PRN 06/26/21 06/30/21 aripiprazole 5 mg tablet (Abilify) 5 mg PO BEDTIME 06/26/21 06/30/21 duloxetine 60 mg capsule,delayed 60 mg PO DAILY 06/26/21 06/30/21 release (Cymbalta) gabapentin 100 mg tablet 200 mg PO TID 06/26/21 06/30/21 quetiapine 100 mg tablet (Seroquel) 100 mg PO BEDTIME 06/26/21 06/30/21 ketoconazole 2 % topical cream 1 applic TOPICAL BID 06/30/21 06/30/21 lorazepam 0.5 mg tablet 0.5 mg PO BID PRN 06/30/21 06/30/21 magnesium hydroxide 400 mg/5 mL 400 mg PO DAILY PRN 06/30/21 06/30/21 oral suspension (Milk of Magnesia) Previous Rx's Medication Instructions Recorded miscellaneous medical supply #1 ea 06/26/21 oxycodone 5 mg tablet 5 mg PO Q6-8H PRN 7 Days #28 tab 06/29/21 Allergies Allergy/AdvReac Type Severity Reaction Status Date / Time aspirin [ASA] Allergy Mild VOMITTING Verified 06/30/21 18:09 diphenhydramine Allergy Mild DROPS BP Verified 06/30/21 18:09 [From BENADRYL] Penicillins [PCN] Allergy Mild VOMITTING Verified 06/30/21 18:09 prochlorperazine Allergy Mild MUSCLE Verified 06/30/21 18:09 [From COMPAZINE] STIFFNESS haloperidol [From Haldol] Allergy Anaphylaxis Verified 06/30/21 18:09 ibuprofen AdvReac Nausea Verified 06/30/21 18:09 oxycodone AdvReac Stomach Verified 06/30/21 18:09 Upset Review of Systems Review of Systems: Constitutional : No Weight loss, No Fever, No Chills, No Night Sweats, No Fatigue, No Malaise ENT/Mouth : No Hearing loss, No Ear Pain, No Nasal Congestion, No Sinus Pain, No Hoarseness, No sore throat, No Rhinorrhea, No Swallowing Difficulty Eyes: No Eye Pain, No Swelling, No Redness, No Foreign Body, No Discharge, No Vision Changes Cardiovascular : No Chest Pain, No SOB, No Dyspnea on Exertion, No Orthopnea, No Edema, No Palpitations Respiratory : No Cough, No Sputum, No Wheezing, No Smoke Exposure, No Dyspnea Gastrointestinal : No Nausea, No Vomiting, No Diarrhea, No Constipation, No abdominal Pain, No Hematochezia, No Melena Genitourinary : no irregular bleeding, No Dysuria, No Urinary Frequency, No Hematuria, No Urinary Incontinence, No Urgency, No Flank Pain, No Urinary Flow Changes, No Hesitancy Musculoskeletal : No joint pain, No Myalgias, No Joint Swelling Skin : No Skin Lesions, No rash Neuro : No Weakness, No Numbness, No Paresthesias, No Loss of Consciousness, No Dizziness, No Headache Psych : No Anxiety/Panic, No Depression, No SI/HI/AH/VH, No Social Issues, Heme/Lymph: No Bruising, No Bleeding,No Lymphadenopathy Endocrine : No Polyuria, No Polydipsia, No Temperature Intolerance Yes all other systems are reviewed and are negative [facility] Past Medical History Medical History Catatonia Depression PTSD (post-traumatic stress disorder) Seizures Surgical History History of breast surgery History of hernia surgery History of knee surgery History of mandibular surgery Hx of hysterectomy Hx of total knee replacement Social History Social History Alcohol intake: never Patient Tobacco Use Status: Never used Tobacco Use of substances other than those prescribed or required for medical reasons: No Advance Directives: No Advance Directives Information Provided: No service: No Current occupational status: disabled 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 Blood pressure normal. Heart rate tachycardic at 114 Respiration rate normal. Temperature normal. Oxygen saturation normal. Appearance: Alert. Oriented X3. No acute distress. Head: Normal external exam. Normocephalic. Atraumatic. Eyes: PERRLA. EOMI. Conjunctiva and sclera normal. Eyelids normal. ENT: Pharynx normal. Uvula midline. Moist mucous membranes. Neck: Normal inspection. Neck supple. FROM. No adenopathy. No meningeal signs. No neck mass noted. CVS: Normal heart rate and rhythm. Heart sound normal. Pulses normal throughout. No murmurs/rales/gallops. Respiratory: No respiratory distress. Painless inspiration. Breath sounds normal. No wheezes/rales/rhonchi noted. Chest nontender. No accessory muscle usage noted or decreased air movement noted. Abdomen: Soft and nontender. Bowel sounds normal in all 4 quadrants. No distention noted. No organomegaly noted. No visible injury noted. Back: Full range of motion noted. Skin: Skin warm and dry. Normal skin color. Normal skin turgor. No rashes/lesions/lacerations noted. Extremities: Patient with bilateral splints to bilateral hand/wrist/forearms. Otherwise all other Extremities exhibit normal range of motion and nontender. Neuro: Oriented X 3. No motor deficit. No sensory deficit. Reflexes normal. Normal steady gait. No focal neuro deficits noted. Vascular: Normal cap refill. No cyanosis noted to upper extremity nails and lower extremity toes nails. Course Course Course Narrative: 20:30pm - 65-year-old female with a past medical history of depression, PTSD, catatonia, generalized anxiety disorder, seizures and bilateral wrist fractures presenting to the ED with request for physical therapy and case management consult for senior care facility placement. She reports that she was seen here on 06/15/2021 and diagnosed with bilateral wrist fractures and she has surgery on 06/26/2021 and she was discharged home after she was told that she would have outpatient physical therapy/services at her friend's house although she has not received any services and she believes that she may need to go to a senior care facility. She denies any new injuries complaints or concerns at this time. Plan: Labs, COVID swab and re-evaluate Reevaluation(s) Reevaluation #1: - labs reviewed in BUN at 25. AST/ALT/alkaline phosphate 37/60/222 otherwise all other labs are within normal limits. - at this time patient is placed in Physician observation because the patient needs more time to be evaluated by Physical therapy for possible short-term rehab with case management. At this time patient is alert and oriented x3. Not in any acute distress. No focal neuro deficits are noted. Lungs clear to auscultation. CV RRR. Abdomen is soft and nontender. Will continue to monitor. Time: 21:30 Medical Decision Making Medical Records Medical records reviewed: Yes I reviewed the patient's medical records. Lab Data Lab results reviewed: Yes I reviewed the patient's lab results. Result diagrams: 06/30/21 20:53 06/30/21 20:53 Labs: Lab Results 06/30/21 06/30/21 06/30/21 Range/Units 20:53 20:53 20:54 WBC 6.0 (4.8-10.8) X10*3/uL RBC 4.39 (4.20-5.50) X10*6/uL Hgb 13.0 (12.0-16.0) g/dl Hct 40.6 (37.0-47.0) % MCV 92.5 (80.0-98.0) fL MCH 29.6 (27.0-33.0) pg MCHC 32.0 (31.0-35.0) g/dl RDW 13.4 (11.0-16.0) % Plt Count 336 (160-400) X10*3/uL MPV 9.8 (9.4-12.3) fL Immature Gran % (Auto) 0.3 (0.0-0.4) % Neut % (Auto) 69.3 (45-73) % Lymph % (Auto) 20.7 (20-40) % [place] % (Auto) 7.6 (2-11) % Eos % (Auto) 1.8 (0-4) % Baso % (Auto) 0.3 (0-2) % Lymph # (Auto) 1.3 (1.2-4.9) X10*3/uL [place] # (Auto) 0.5 (0.1-1.2) X10*3/uL Eos # (Auto) 0.1 (0.0-0.4) X10*3/uL Baso # (Auto) 0.0 (0.0-0.2) X10*3/uL Abs Immat Gran (auto) 0.02 (0.00-0.03) X10*3/uL Absolute Neuts (auto) 4.2 (2.0-8.3) x10*3/uL Absolute Nucleated RBC 0.000 (0.0-0.012) X10*3/uL Nucleated RBC % (auto) 0.0 (0.0-0.2) /100WBC Sodium 139 (135-145) mmol/L Potassium 4.1 (3.3-5.1) mmol/L Chloride 102 (96-108) mmol/L Carbon Dioxide 27 (22-29) mmol/L Anion Gap 14 (12-20) BUN 25 H (9-16) mg/dL Creatinine 0.69 (0.5-1.4) mg/dL Estim Creat Clear Calc 62.9 Estimated GFR > 60 Random Glucose 106 (60-115) mg/dL Calcium 9.4 (8.4-10.2) mg/dL Magnesium 2.2 (1.6-2.6) mg/dL Total Bilirubin 0.6 (0.0-1.0) mg/dL AST 37 H (5-31) U/L ALT 60 H (0-31) U/L Alkaline Phosphatase 222 H (39-117) U/L Total Protein 7.5 (6.5-8.0) g/dL Albumin 4.2 (3.5-5.0) g/dL Urine Color Urine Appearance Urine pH (5.0-8.0) Ur Specific [place] (1.005-1.025) Urine Protein (NEG-TRACE) MG/DL Urine Glucose (UA) (NEG) MG/DL Urine Ketones (NEG) MG/DL Urine Blood (NEG) Urine Nitrite (NEG) Ur Leukocyte Esterase (NEG) Urine RBC (0) /HPF Urine WBC (0-4) /HPF Ur Squamous Epith Cells /LPF Urine Bacteria /LPF Urine Mucus /LPF Urine Opiates Screen (Not Detect) Urine Fentanyl Screen (Not Detect) Ur Barbiturates Screen (Not Detect) Ur Phencyclidine Scrn (Not Detect) Ur Amphetamines Screen (Not Detect) U Benzodiazepines Scrn (Not Detect) Urine Cocaine Screen (Not Detect) U Marijuana (THC) Screen (Not Detect) COVID-19 (JEANINE) Negative (Negative) COVID-19 Clin Com See Note 06/30/21 06/30/21 Range/Units 22:31 22:31 WBC (4.8-10.8) X10*3/uL RBC (4.20-5.50) X10*6/uL Hgb (12.0-16.0) g/dl Hct (37.0-47.0) % MCV (80.0-98.0) fL MCH (27.0-33.0) pg MCHC (31.0-35.0) g/dl RDW (11.0-16.0) % Plt Count (160-400) X10*3/uL MPV (9.4-12.3) fL Immature Gran % (Auto) (0.0-0.4) % Neut % (Auto) (45-73) % Lymph % (Auto) (20-40) % [place] % (Auto) (2-11) % Eos % (Auto) (0-4) % Baso % (Auto) (0-2) % Lymph # (Auto) (1.2-4.9) X10*3/uL [place] # (Auto) (0.1-1.2) X10*3/uL Eos # (Auto) (0.0-0.4) X10*3/uL Baso # (Auto) (0.0-0.2) X10*3/uL Abs Immat Gran (auto) (0.00-0.03) X10*3/uL Absolute Neuts (auto) (2.0-8.3) x10*3/uL Absolute Nucleated RBC (0.0-0.012) X10*3/uL Nucleated RBC % (auto) (0.0-0.2) /100WBC Sodium (135-145) mmol/L Potassium (3.3-5.1) mmol/L Chloride (96-108) mmol/L Carbon Dioxide (22-29) mmol/L Anion Gap (12-20) BUN (9-16) mg/dL Creatinine (0.5-1.4) mg/dL Estim Creat Clear Calc Estimated GFR Random Glucose (60-115) mg/dL Calcium (8.4-10.2) mg/dL Magnesium (1.6-2.6) mg/dL Total Bilirubin (0.0-1.0) mg/dL AST (5-31) U/L ALT (0-31) U/L Alkaline Phosphatase (39-117) U/L Total Protein (6.5-8.0) g/dL Albumin (3.5-5.0) g/dL Urine Color YELLOW Urine Appearance CLEAR Urine pH 7.0 (5.0-8.0) Ur Specific [place] 1.015 (1.005-1.025) Urine Protein 1+ H (NEG-TRACE) MG/DL Urine Glucose (UA) NEG (NEG) MG/DL Urine Ketones NEG (NEG) MG/DL Urine Blood NEG (NEG) Urine Nitrite NEG (NEG) Ur Leukocyte Esterase TRACE H (NEG) Urine RBC 1-4 (0) /HPF Urine WBC 5-9 H (0-4) /HPF Ur Squamous Epith Cells 1+ /LPF Urine Bacteria TRACE /LPF Urine Mucus 4+ /LPF Urine Opiates Screen Not Detected (Not Detect) Urine Fentanyl Screen Not Detected (Not Detect) Ur Barbiturates Screen Not Detected (Not Detect) Ur Phencyclidine Scrn Not Detected (Not Detect) Ur Amphetamines Screen Not Detected (Not Detect) U Benzodiazepines Scrn Not Detected (Not Detect) Urine Cocaine Screen Not Detected (Not Detect) U Marijuana (THC) Screen Not Detected (Not Detect) COVID-19 (JEANINE) (Negative) COVID-19 Clin Com ECG Data Attestation: I personally reviewed and interpreted this ECG as follows: Interpretation: Normal sinus rhythm with a ventricular rate of 93 with a normal VT interval normal QRS duration with QT/QTC interval. No acute ischemic changes are noted. Similar compared to prior EKG 03/16/2017 Discharge Plan Discharge Clinical Impression: Distal radius fracture, right, Distal radius fracture, left Patient Disposition: Still a Patient Prescriptions: No Action (DME) miscellaneous medical supply Misc See Rx Instructions miscellaneous .MEDSUPPLY Qty: 1 RF: 0 quetiapine [Seroquel] 100 mg Tablet 100 mg PO BEDTIME RF: 0 acetaminophen 500 mg Tablet 1,000 mg PO TID PRN (Reason: Pain) RF: 0 aripiprazole [Abilify] 5 mg Tablet 5 mg PO BEDTIME RF: 0 duloxetine [Cymbalta] 60 mg Capsule,Delayed Release(Dr/Ec) 60 mg PO DAILY RF: 0 gabapentin 100 mg Tablet 200 mg PO TID RF: 0 oxycodone 5 mg Tablet 5 mg PO Q6-8H PRN (Reason: Pain, Moderate (Pain Scale 4-6) 7 Days Qty: 28 RF: 0 ketoconazole 2 % cream 1 applic topical BID RF: 0 magnesium hydroxide [Milk of Magnesia] 400 mg/5 mL Suspension 400 mg PO DAILY PRN (Reason: Constipation) RF: 0 lorazepam 0.5 mg Tablet 0.5 mg PO BID PRN (Reason: Anxiety) RF: 0
[2021-06-30 20:59] LABS: MANUAL DIFF FLAG NO
[2021-06-30 21:06] LABS: Basophils Percent Auto 0.3 % (0-2); Eosinophils Absolute Auto 0.1 X10*3/uL (0.0-0.4); Eosinophils Percent Auto 1.8 % (0-4); Hematocrit 40.6 % (37.0-47.0); Imm Gran Abs Auto 0.02 X10*3/uL (0.00-0.03); Imm Gran Pct Auto 0.3 % (0.0-0.4); Lymphocytes Absolute Auto 1.3 X10*3/uL (1.2-4.9); Lymphocytes Percent Auto 20.7 % (20-40); Mean Corpuscular Hemoglobin 29.6 pg (27.0-33.0); Mean Corpuscular Volume 92.5 fL (80.0-98.0); Mean Platelet Volume 9.8 fL (9.4-12.3); Monocytes Absolute Auto 0.5 X10*3/uL (0.1-1.2); Monocytes Percent Auto 7.6 % (2-11); Neutrophils Absolute Auto 4.2 x10*3/uL (2.0-8.3); Neutrophils Percent Auto 69.3 % (45-73); Platelet Count 336 X10*3/uL (160-400); Red Blood Count 4.39 X10*6/uL (4.20-5.50); Red Cell Distribution Width 13.4 % (11.0-16.0)
--- NOTE | 2021-06-30 21:13 | PHA.MEDREC ---
Pharmacy Consult ? Medication Reconciliation Pharmacy has completed the medication reconciliation. Samina JustinD
[2021-06-30 21:16] LABS: Alanine Aminotransferase 60 U/L (0-31); Albumin Level 4.2 g/dL (3.5-5.0); Alkaline Phosphatase 222 U/L (39-117); Anion Gap 14 (12-20); Aspartate Amino Transferase 37 U/L (5-31); Bilirubin Total 0.6 mg/dL (0.0-1.0); Blood Urea Nitrogen 25 mg/dL (9-16); Calcium 9.4 mg/dL (8.4-10.2); Carbon Dioxide 27 mmol/L (22-29); Chloride 102 mmol/L (96-108); Creatinine Clr Calc Pharmacy 62.9; Estimated Glomerular Filt Rate > 60; Glucose Random 106 mg/dL (60-115); Magnesium 2.2 mg/dL (1.6-2.6); Potassium 4.1 mmol/L (3.3-5.1); Sodium 139 mmol/L (135-145); Total Protein 7.5 g/dL (6.5-8.0)
[2021-06-30 21:16] LABS: COVID-19 Test Negative (Negative)
[2021-06-30 22:20] VITALS: BP 117/76; PULSE 89; RESP 16; TEMP 36.4; O2SAT 98
--- NOTE | 2021-06-30 22:33 | MHC.CM.ED ---
CM met with patient at request of Vicky Agudelo. Pt sustained bilateral fx wrists in a fall at [facility] on 06/15/21 and Had surgical repair at [facility] on 06/26/21. States limited weight bearing for 2-4 weeks post op. Pt is requesting STR. PT pending. Fully vaccinated with Pfizer 11/26.12/17/20. PCP is Carina Lamas CNP. No HCP. HCP reviewed and signed. Copies given and uploaded into [facility] and [facility]pan[facility]. HCP/friend Charlie Hay ([phone]) and alternate HCP/friend Mackenzie Ramos ([phone]). Pt lives alone, uses a cane and walker and has no services. Care Port given. 6 referrals placed. CM to follow for d/c needs.
[2021-06-30 22:45] LABS: Appearance Urine CLEAR; Color Urine YELLOW; Glucose Urine UA NEG (NEG); Leukocyte Esterase Urine TRACE (NEG); Nitrite Urine NEG (NEG); Specific Gravity - Urine 1.015 (1.005-1.025); UACC Culture Trigger YES; Urine Blood NEG (NEG); Urine Ketones NEG (NEG); Urine Protein 1+ MG/DL (NEG-TRACE)
[2021-06-30 23:01] LABS: Amphetamine Screen Urine Not Detected (Not Detect); Barbiturates, Urine Not Detected (Not Detect); Benzodiazepines Screen Urine Not Detected (Not Detect); Cannabinoid Screen Urine Not Detected (Not Detect); Cocaine Screen Urine Not Detected (Not Detect); Fentanyl, urine Not Detected (Not Detect); Opiate Screen Urine Not Detected (Not Detect); Phencyclidine Screen Urine Not Detected (Not Detect)
[2021-06-30 23:31] LABS: Bacteria Urine TRACE /LPF; Mucus Urine 4+ /LPF; Squamous Epithelial Cell Urine 1+ /LPF
--- NOTE | 2021-07-01 05:10 | PC.NURSE ---
REPORT TAKEN FROM MANOLO CONDE. FIRST CONTACT WITH PT. RESTING IN BED KIN PWD RESPIRATIONS EVEN UNLABORED. AWAITING CM/PT EVAL IN AM. AWARE OF PLAN OF CARE.
[2021-07-01 06:00] VITALS: BP 97/66; PULSE 81; RESP 16; O2SAT 99
[2021-07-01 07:13] VITALS: BP 97/66; PULSE 81; O2SAT 99
--- NOTE | 2021-07-01 09:20 | MHC.CM.ED ---
Patient remains in ER. None of the 6 facilities that were referred in [employer] are able to offer a bed. Referral broadcasted within 10 miles of patient's home. [facility] exemption letter will be needed due to recent inpatient psych stay. PASRR Level 1 completed and faxed to [facility]. Continue to monitor for d/c needs.
[2021-07-01] MEDS: Gabapentin 100 MG CAPSULE 200 MG PO ×2 (09:41→16:14)
[2021-07-01] MEDS: oxyCODONE HCl Immed Release 5 MG TABLET PO (09:41)
[2021-07-01] MEDS: DULoxetine HCl 60 MG CAPSULE.DR PO (09:41)
--- NOTE | 2021-07-01 12:21 | MHC.CM.ED ---
[facility] is only facility that is able to offer a bed today. Met with patient and sister. Both agreeable to accept bed at [facility]. Patient can leave at 430. [facility] BLS booked. [facility] with chart. Patient, Sister, Padmini CONDE and Mackenzie COLLINS aware. Devon PRINCE made aware. Waiting for [facility] exemption letter. Continue to monitor for d/c needs.
[2021-07-01 16:16] VITALS: BP 139/84; PULSE 110; RESP 18; TEMP 36.8; O2SAT 95
== END 2021-07-01 16:43 | disposition skilled nursing facility (03) ==
PROVIDERS: Physician Assistant Medical; Emergency Provider Internal Medicine; PCP Nurse Practitioner Adult Health
DX: S52.502A Unspecified fracture of the lower end of left radius, initial encounter for closed fracture (principal); W18.30XA Fall on same level, unspecified, initial encounter; Y93.9 Activity, unspecified; Y92.9 Unspecified place or not applicable; Y99.9 Unspecified external cause status; Z79.899 Other long term (current) drug therapy; Z20.822 Contact with and (suspected) exposure to COVID-19
CPT/HCPCS: 36415; 80053; 80307; 81001; 83735; 85025; 87086; 87635; 93005; 97162; 99285

== ENCOUNTER 2021-07-08 08:59 | Outpatient (REF) | payer MEDICARE, MEDICAID, SELFPAY ==
--- NOTE | ~2021-07-08 | XR_ITS ---
EXAMINATION: XR WRIST, RIGHT CLINICAL INFORMATION: Pain in the wrist.. Status post ORIF wrist fracture. COMPARISON: Right wrist 06/15/2021 TECHNIQUE: PA, lateral, and oblique views of the right wrist. FINDINGS: Orthopedic plate and screw transfixes distal radial fracture. The fracture lines remain partially radiolucent. There is no displacement of the fracture fragments. No hardware failure. Nonunited fracture of the tip of the ulnar styloid remains unchanged since prior study. XR/XR wrist RT min 3V IMPRESSION: Status post ORIF distal radial fracture. Fracture lines remain partially radiolucent.
--- NOTE | ~2021-07-08 | XR_ITS ---
EXAMINATION: XR WRIST, LEFT CLINICAL INFORMATION: Pain in left wrist. History of wrist fracture. COMPARISON: Left wrist 06/15/2021 TECHNIQUE: PA, lateral, and oblique views of the left wrist. FINDINGS: Status post ORIF distal radial fracture with orthopedic plate and screw. Hardware intact. Alignment of fracture fragments is normal. There is still partial radiolucency of the fracture lines. Small fracture fragments adjacent to the tip of the ulnar styloid XR/XR wrist LT min 3V IMPRESSION: Status post ORIF distal radial fracture. Fracture lines remain partially radiolucent. No acute abnormality of wrist.
== END 2021-07-08 09:00 | disposition home or self-care (01) ==
LOC: HO.HOSX 08:59
PROVIDERS: Visit Provider Orthopaedic Surgery
DX: S52.501D Unspecified fracture of the lower end of right radius, subsequent encounter for closed fracture with routine healing (principal); S52.502D Unspecified fracture of the lower end of left radius, subsequent encounter for closed fracture with routine healing
CPT/HCPCS: 73110; 99212

== ENCOUNTER 2021-08-05 12:37 | Outpatient (REF) | payer MEDICARE, MEDICAID, SELFPAY ==
--- NOTE | ~2021-08-05 | XR_ITS ---
EXAMINATION: XR WRIST, RIGHT XR WRIST, LEFT CLINICAL INFORMATION: Pain in right wrist. COMPARISON: XR right wrist 07/08/2021. TECHNIQUE: PA, oblique, and lateral views of each wrist are obtained. FINDINGS: RIGHT WRIST: There is no change in the volar plate and multiple screws transfixing the distal radial fracture in near-anatomic alignment. Fracture lines are still visible on the ulnar aspect of the intra-articular portion of the fracture but are slightly less conspicuous and there is some minimal external callus formation noted. The displaced ulnar styloid fracture is again noted. LEFT WRIST: There is no change in the volar plate and numerous screws transfixing the distal radial fracture in near-anatomic alignment. There is no significant interval change in the lucency noted at the ulnar side of the fracture. There is no apparent interval callus formation. The multiple tiny displaced ulnar styloid fractures are again noted. XR/XR wrist RT min 3V IMPRESSION: RIGHT WRIST: Minimal interval healing of the distal radial fracture. No change in displaced ulnar styloid fracture. LEFT WRIST: No significant change in distal radial fracture and multiple tiny displaced ulnar styloid fractures.
--- NOTE | ~2021-08-05 | XR_ITS ---
EXAMINATION: XR WRIST, RIGHT XR WRIST, LEFT CLINICAL INFORMATION: Pain in right wrist. COMPARISON: XR right wrist 07/08/2021. TECHNIQUE: PA, oblique, and lateral views of each wrist are obtained. FINDINGS: RIGHT WRIST: There is no change in the volar plate and multiple screws transfixing the distal radial fracture in near-anatomic alignment. Fracture lines are still visible on the ulnar aspect of the intra-articular portion of the fracture but are slightly less conspicuous and there is some minimal external callus formation noted. The displaced ulnar styloid fracture is again noted. LEFT WRIST: There is no change in the volar plate and numerous screws transfixing the distal radial fracture in near-anatomic alignment. There is no significant interval change in the lucency noted at the ulnar side of the fracture. There is no apparent interval callus formation. The multiple tiny displaced ulnar styloid fractures are again noted. XR/XR wrist LT min 3V IMPRESSION: RIGHT WRIST: Minimal interval healing of the distal radial fracture. No change in displaced ulnar styloid fracture. LEFT WRIST: No significant change in distal radial fracture and multiple tiny displaced ulnar styloid fractures.
== END 2021-08-05 12:38 | disposition home or self-care (01) ==
LOC: HO.HOSX 12:37
PROVIDERS: PCP Nurse Practitioner Adult Health; Visit Provider Orthopaedic Surgery
DX: S52.501D Unspecified fracture of the lower end of right radius, subsequent encounter for closed fracture with routine healing (principal); S52.502D Unspecified fracture of the lower end of left radius, subsequent encounter for closed fracture with routine healing
CPT/HCPCS: 73110; 99212

== ENCOUNTER 2021-09-10 08:33 | Outpatient (REF) | payer MEDICARE, SELFPAY ==
--- NOTE | ~2021-09-10 | XR_ITS ---
EXAMINATION: XR WRIST, RIGHT XR WRIST, LEFT CLINICAL INFORMATION: Bilateral fractures. Follow-up COMPARISON: Comparison is made with bilateral wrist radiographs 08/05/2021. TECHNIQUE: Each wrist is imaged in 3 views. There are total of 6 views. FINDINGS: Right: Distal radial fracture is reduced with volar side plate and screws. Hardware is intact. No destructive process or osteolysis. Fracture alignment is near-anatomic. Fracture line still faintly visible. There is ulnar styloid fracture again seen with corticated margins. No acute bony abnormality. Left: Distal radial fracture is reduced with volar side plate and screws. Hardware is intact. No destructive process or osteolysis. Fracture alignment is near-anatomic. Fracture line still faintly visible. There is old comminuted fracture ulnar styloid again seen. No acute bony abnormality. XR/XR wrist RT min 3V IMPRESSION: 1. Bilateral open reduction internal fixation distal radial fractures. Hardware intact. No destructive process. 2. Stable bilateral ulnar styloid fractures. 3. No acute bony abnormality.
--- NOTE | ~2021-09-10 | XR_ITS ---
EXAMINATION: XR WRIST, RIGHT XR WRIST, LEFT CLINICAL INFORMATION: Bilateral fractures. Follow-up COMPARISON: Comparison is made with bilateral wrist radiographs 08/05/2021. TECHNIQUE: Each wrist is imaged in 3 views. There are total of 6 views. FINDINGS: Right: Distal radial fracture is reduced with volar side plate and screws. Hardware is intact. No destructive process or osteolysis. Fracture alignment is near-anatomic. Fracture line still faintly visible. There is ulnar styloid fracture again seen with corticated margins. No acute bony abnormality. Left: Distal radial fracture is reduced with volar side plate and screws. Hardware is intact. No destructive process or osteolysis. Fracture alignment is near-anatomic. Fracture line still faintly visible. There is old comminuted fracture ulnar styloid again seen. No acute bony abnormality. XR/XR wrist LT min 3V IMPRESSION: 1. Bilateral open reduction internal fixation distal radial fractures. Hardware intact. No destructive process. 2. Stable bilateral ulnar styloid fractures. 3. No acute bony abnormality.
== END 2021-09-10 08:34 | disposition home or self-care (01) ==
LOC: HO.HOSX 08:33
PROVIDERS: Visit Provider Orthopaedic Surgery
DX: S52.201D Unspecified fracture of shaft of right ulna, subsequent encounter for closed fracture with routine healing (principal); S52.502D Unspecified fracture of the lower end of left radius, subsequent encounter for closed fracture with routine healing
CPT/HCPCS: 73110; 99212

== ENCOUNTER 2021-10-07 09:00 | Outpatient (RCR) | payer MEDICARE, OTHER, MEDICAID, SELFPAY ==
--- NOTE | 2021-08-18 15:15 | MHC.OT.OEV ---
[address] [phone] F: [phone] Occupational Therapy Evaluation Diagnosis: FX OF LOWER END OF R RADIUS Date of Onset: 06/15/21 Date of Surgery: 06/26/21 Attending Provider: Mitra Hunter Prescribed Treatment: EVAL AND TREAT History of Current Condition: UNDERWENT B/L ORIF OF WRISTS FOR DISTAL RADIUS FRACTURES ON 06/26/21. PER CHART, Pt HAD FALL AT [facility]. HX CATATONIA. SUTURES REMOVED, STERI STRIPS PLACED, B/L PREFAB WRIST ORTHOSIS PROVIDED ON 07/08/21 IN ORTHOPEDIC OFFICE. Significant Medical History: CATATONIA, PTSD, DEPRESSION, ARTHRITIS Precautions/Contraindications: POST OP B/L WRISTS 06/26/21 Patient Goals: FULL USE OF BOTH WRISTS, LIFT ITEMS, HAVE NO PAIN Hand Dominance: Right Observations: B/L WRIST SPLINTS WORN, W/C LEVEL FOR EVAL QuickDASH Score: 66% Prior Level of Function and Occupation Self Care, Employment, Leisure: DISABLED. IND ADLs AND IADLs, AMBULATING WITH ROLLATOR HOBBIES: WORD GAMES ON PHONE, WALKED TWO MILES, GARDENING IN THE SUMMER Living Situation, Family and/or Social Support: LIVES WITH SON (WORKS NIGHTS) AND DAUGHTER IN LAW (WORKS DAYS), TWO GRANDSON (10 AND 11 YEARS OLD) SINCE B/L WRIST FRACTURES. PREVIOUSLY LIVING ALONE. SUPPORTIVE SISTER ASSISTING WITH TRANSPORTATION AND IADLs Current Level of Function and Occupation Self Care, Employment, Leisure: FAMILY ASSISTING WITH TRANSPORTATION, WASHING UPPER AND LOWER BACK, ASSIST WITH HOUSEHOLD TASKS, NOT COOKING MEALS. MODERATE DIFFICULTIES WITH WASHING DISHES. ABLE TO DO BUTTONS, ZIPPERS AND PULL UP PANTS AFTER TOILETING TASKS. REPORTS INTEREST IN RO[employer]ED [employer] OPER[employer] SERVICES, YET NOT CURRENTLY IN PLACE. SISTER COMES MOST DAYS OF THE WEEK FOR 1-2 HOURS/DAY TO ASSIST WITH DAILY TASKS Sleep: WAKES OFTEN AT NIGHT FROM PAIN IN KNEE > WRISTS; NOT WEARING WRIST SPLINTS AT NIGHT Driving: RECEIVES ASSISTANCE WITH TRANSPORTATION Vision: GLASSES Balance: PREVIOUSLY AMBULATING WITH ROLLATOR OR SPC, NOW USING W/C IN COMMUNITY AND WITHOUT AD IN HOME Pain Assessment Pain Score: 2-9/10 Pain Scale Used: Numeric (0 - 10) Pain Location and Description: B/L VOLAR AND RADIAL WRISTS L WRIST 8/10 AT REST, 9/10 WITH USE SHARP PAIN RADIATING THROUGH LUE R WRIST 2/10 AT REST, 6/10 WITH USE Aggravating Factors: WASHING DISHES, HEAVY USE, SLEEPING Alleviating Factors: TAKING GABAPENTIN AND TYLENOL, SOAKING B/L HANDS IN WARM WATER, REST Skin and Soft Tissue Assessment Skin and Soft Tissue: Swelling Wound Scar Tissue Comments: HEALED VOLAR SCARS B/L WRISTS Sensory Assessment Temperature: Light Touch: Proprioception: Vibration: Comments: DENIES CHANGES IN B/L UEs Edema Assessment Upper Extremity: Right Impaired Left Impaired Lower Extremity: Comments: EDEMA TO LATERAL ASPECT OF B/L SCARS CIRCUMFERENCE OF B/L WRISTS, DISTAL TO US: L 15.8 CM, R 15.5 CM Dexterity Assessment Dexterity: B/L Impaired Comments: FUNCTIONAL DEXTERITY TEST: RIGHT 33 SECONDS, LEFT 45 SECONDS Special Tests Comments: AROM(PROM) Strength Elbow Flexion: Extension: Pronation: R 82, L 84 Supination: R 82, L 70 Comments: REPORTS MILD DISCOMFORT IN L ELBOW WITH FLEXION/EXTENSION Flexion: Extension: Pronation: Supination: Comments: Wrist Flexion: R 60, L 40 Extension: R 45, L 30 Ulnar Deviation: L 35, R 40 Radial Deviation: L 7, R 10 Comments: Flexion: Extension: Ulnar Deviation: Radial Deviation: Comments: Thumb Thumb CMC Flexion: Thumb MCP Flexion: Thumb IP Flexion: Radial Abduction: Palmar Abduction: Adrian (Kapandji 0-10): R 9/10, L 8/10 Comments: Digits Index MCP: PIP: DIP: Long MCP: PIP: DIP: Ring MCP: PIP: DIP: Small MCP: PIP: DIP: Comments: COMPOSITE FIST ACHIEVED IN RIGHT HAND, EMERGING ABILITY IN LEFT HAND Gross Grasp: R 13, L 10 Lateral Pinch: R 8, L 5 Two-Point Pinch: Three-Jaw José Miguel: Comments: SUBMAX EFFORT DUE TO PAIN Patient Education Primary Language: Vietnamese Housekeeping Lead Required: No Current Knowledge: Minimal, needs reinforcement Teaching Method: Demonstration Handouts Verbal Education Needs Identified on Evaluation: ADL's Disease Information Equipment Use Exercise Pain Safety How did patient/family demonstrate learning? Patient demonstrates Patient verbalizes Needs reinforcement Barriers to Learning: Cannot Comprehend Other Readiness for Learning: Accepting Who was educated? Patient Comments: Pt TO HAVE SISTER PRESENT FOR F/U VISITS DUE TO MEMORY IMPAIRMENTS (PER Pt REPORT) Plan of Care Assessment: JOSELO IS A RIGHT HANDED FEMALE, 7.5 WEEKS POST OP B/L WRIST ORIF AFTER SHE SUSTAINED A FALL. SHE REPORTS ONGOING IMPROVEMENTS IN RIGHT WRIST YET CONTINUES TO HAVE INCREASED PAIN, HYPERSENSITIVITIES AND ROM LIMITATIONS IN HER NON DOMINANT L WRIST. ONGOING SKILLED OT IS WARRANTED TO ADDRESS B/L WRIST ROM, STRENGTH, COORDINATION, SCAR MANAGEMENT, AND PAIN. A 66% LIMITATION IS REPORTED PER THE QUICK DASH ASSESSMENT. Pt TO HAVE SISTER PRESENT AT F/U SESSIONS DUE TO SELF REPORTED MEMORY IMPAIRMENTS. WILL CONTINUE TO FOLLOW TO IMPROVE QOL AND FUNCTIONAL ABILITIES. 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 STRENGTH BY 15 POUNDS S DESENSITIZATION TECHNIQUES FOR GOOD TOLERANCE TO VARIOUS TEXTURES Frequency and Duration: The patient will be seen 2X/WEEK FOR 6 WEEKS Treatment Plan: Therapeutic Exercise Therapeutic Activity Home Exercise Program Splinting Neuro Re-ed Patient Education Desensitization/Sensory Re-ed Edema Control ADL Training Ultrasound NMES Iontophoresis Paraffin Fluidotherapy MHP Cold Packs Joint Mobilization Soft Tissue Mobilization Kinesiotaping Electronically Signed By: CATARINO ADAN/L Reviewed/agree with student documentation: N/A Therapist: Please sign and return to therapist, Thank you for your referral.
--- NOTE | 2021-09-09 11:41 | MHC.OT.OP ---
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 SHE IS NOW 10 WEEKS POST OP. HER DOMINANT RIGHT WRIST IS ESSENTIALLY PAINFREE AND HAS FUNCTIONAL ROM. HER LEFT WRIST IS PROVING TO BE MORE PAINFUL, YET IS MAKING STEADY GAINS WITH ROM. ADDITIONALLY, SHE HAS BEEN WORKING ON B/L SCAR MOBILIZATION, EDEMA MANAGEMENT AND COORDINATION. ONGOING SKILLED OT IS WARRANTED TO ACHIEVE MAX FUNCTIONAL LEVEL AND ADDRESS STGs AND LTGs. 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
--- NOTE | 2021-10-21 11:37 | MHC.OT.DC ---
[address] [phone] F: [phone] Occupational Therapy Discharge Note Provider: Mitra Hunter Diagnosis: FX OF LOWER END OF R RADIUS Date of Surgery: 06/26/21 Date of Evaluation: 08/18/21 Date of Discharge: 10/21/21 Treatments to Date: 9 Cancellations to Date: 7 No Shows to Date: 2 Discharge Status: Achieved Goals Improved Function Independent with HEP Patient Elected to Stop Discharge Summary: MS GRANT SANCHEZ HAS PROGRESSED WELL WITH HER OT RX SESSIONS. SHE REPORTS NO PAIN OR DIFFICULTIES USING HER DOMINANT R HAND, AND MILD PAIN AND DIFFICULTIES WITH HER LEFT HAND. A WRIST WIDGET WAS PROVIDED DUE TO ULNAR WRIST PAIN. SHE STATES SHE HAS LESS PAIN WHEN BRACE IS WORN. SHE HAS BEEN WEANED FROM HER PREFAB WRIST ORTHOSES. SHE WAS DEMONSTRATING IMPROVED ABILITY TO COMPLETE IADLs AND LIFTING TASKS AT HOME. Pt HAS NO-SHOWED HER LAST TWO VISITS AND WILL BE TRANSITIONED TO A HOME BASED PROGRAM AT THIS TIME. D/C OT SERVICES. Electronically Signed By: GUERLINE MILLER OTR/Andrea Reviewed/agree with student documentation: N/A Therapist: Please Sign and return to therapist, thank you for your referral.
== END 2021-10-21 11:35 | disposition home or self-care (01) ==
LOC: HO.OT 09:00
PROVIDERS: PCP Nurse Practitioner Adult Health; Visit Provider Orthopaedic Surgery
DX: S52.501D Unspecified fracture of the lower end of right radius, subsequent encounter for closed fracture with routine healing (principal)
CPT/HCPCS: 97035; 97110; 97112; 97140; 97166; 97530; 97760